=== PATIENT | female | born 2000 | race Hispanic/Latino ===

== ENCOUNTER 2023-06-25 10:17 | Inpatient (IN) | payer OTHER ==
[~2023-06-25 10:17] MED LIST: Bupivacaine 0.25% HCL 30 ML VIAL ONE
[2023-06-25] MEDS ORDERED: fentaNYL 50 mcg/mL 1 mL Vial SLOW IVP PRN (11:03)
[2023-06-25] MEDS ORDERED: Ondansetron PF 4 MG/2 ML Vial IVP PRN ×3 (11:03→19:36)
[2023-06-25] MEDS ORDERED: Tranexamic Acid 1,000 MG/10 ML VIAL IVP PRN (11:03)
[2023-06-25] MEDS ORDERED: Promethazine HCl 25 MG/ML VIAL IM PRN ×3 (11:03→19:36)
[2023-06-25] MEDS ORDERED: Lidocaine 1% (PF) 30 ML VIAL SC PRN (11:03)
[2023-06-25] MEDS ORDERED: Carboprost 250 MCG/ML AMP IM PRN (11:03)
[2023-06-25] MEDS ORDERED: Misoprostol 200 MCG TAB PR PRN (11:03)
[2023-06-25] MEDS ORDERED: hydrALAZINE 20 MG/ML VIAL SLOW IVP PRN ×2 (11:03→19:36)
[2023-06-25] MEDS ORDERED: Diphenoxylate HCl/Atropine Tablet PO PRN (11:03)
[2023-06-25] MEDS ORDERED: HYDROcodone/Acetaminophen 5/325 mg Tablet PO PRN ×2 (11:03→19:36)
[2023-06-25] MEDS ORDERED: Acetaminophen 500 MG TAB PO PRN (11:03)
[2023-06-25] MEDS ORDERED: Ibuprofen 800 MG TAB PO PRN (11:03)
[2023-06-25] MEDS ORDERED: Methylergonovine 0.2 MG/ML VIAL IM PRN (11:03)
[2023-06-25] MEDS ORDERED: Lactated Ringer's 1,000 ML IV SCH (11:15)
[2023-06-25] MEDS ORDERED: NS w/ Oxytocin 30 units 500 ML IV SCH ×3 (11:15)
[2023-06-25 11:45] LABS: Hematocrit 30.8 % (34.9-44.5); Hemoglobin 9.8 g/dL (12.0-15.5); Mean Corpuscular HGB CONC 31.8 g/dL (32.0-36.0); Mean Corpuscular Hemoglobin 25.2 pg (27.0-33.0); Mean Corpuscular Volume 79.2 fl (81.6-98.3); Mean Platelet Volume 10.1 fl (7.4-10.4); Platelet Count 225 10x3/uL (150-450); RBC Distribution Width 14.1 % (11.5-14.5); Red Blood Cell (RBC) Count 3.89 10x6/uL (3.90-5.03); White Blood Cell (WBC) Count 6.8 10x3/uL (3.5-10.5)
[2023-06-25 12:23] LABS: HBSAg Index 0.19 S/CO (0-0.99); Hep B Surf Ag - L&D Non-Reactive S/CO (NonReactive); Syphilis Antibody Nonreactive (Nonreactive); Syphilis Antibody Index 0.03 S/CO (<1.00 Non-Reactive)
[2023-06-25] MEDS ORDERED: fentaNYL/Ropivacaine Epidural 100 ML ONE (13:30)
[2023-06-25] MEDS ORDERED: diphenhydrAMINE 50 MG/ML VIAL IVP PRN (14:20)
[2023-06-25] MEDS ORDERED: ePHEDrine Sulfate 50 MG/10 ML VIAL SLOW IVP PRN (14:20)
[2023-06-25] MEDS ORDERED: Acetaminophen 325 MG TAB PO PRN (14:20)
[2023-06-25] MEDS ORDERED: Moisturizing Cream (Eucerin) 113 GM JAR TOP PRN (14:20)
[2023-06-25] MEDS ORDERED: Lactated Ringer's 500 ML IV PRN (14:20)
[2023-06-25] MEDS ORDERED: Naloxone HCl 0.4 mg/ml Vial IVP PRN ×2 (14:20)
[2023-06-25] MEDS ORDERED: Communication Order-Pharmacy FS SCH (14:30)
[2023-06-25] MEDS ORDERED: fentaNYL 2 mcg/Ropivacaine 0.2% Epidural 100 ML CADD EPIDURAL SCH (14:30)
[2023-06-25 17:52] VITALS: BMI 44.4
[2023-06-25] MEDS ORDERED: Lanolin Ointment 7 GM TUBE TOP PRN (19:36)
[2023-06-25] MEDS ORDERED: Bisacodyl 10 MG SUPP PR PRN (19:36)
[2023-06-25] MEDS ORDERED: diphenhydrAMINE 25 MG CAP PO PRN (19:36)
[2023-06-25] MEDS ORDERED: Boostrix 0.5 ML (Tdap) VIAL (>/=7 yrs of age) IM ONE (19:36)
[2023-06-25] MEDS ORDERED: Milk Of Magnesia 30 ML UDCUP PO PRN (19:36)
[2023-06-25] MEDS: Docusate 100 MG CAP PO SCH (21:32)
[2023-06-25] MEDS: Ibuprofen 800 MG TAB PO SCH (23:23)
[2023-06-26] MEDS: Ibuprofen 800 MG TAB PO SCH ×2 (05:46→13:54)
[2023-06-26] MEDS ORDERED: Ferrous Sulfate 325 MG TAB PO SCH (08:00)
[2023-06-26] MEDS ORDERED: Prenatal Vitamin 1 TAB PO SCH (09:00)
[2023-06-26] MEDS: Docusate 100 MG CAP PO SCH (09:11)
[2023-06-26] MEDS: HYDROcodone/Acetaminophen 5/325 mg Tablet PO PRN ×2 (09:11→18:10)
[2023-06-26 16:43] VITALS: BP 106/55; TEMP 98.3
== END 2023-06-26 19:20 | disposition home or self-care (01) | DRG 807 ==
LOC: CSHLD 10:17 → CSHPP 20:24
PROVIDERS: ADMIT Family Medicine; ATTEND Family Medicine
PROC: 10E0XZZ Delivery of Products of Conception, External Approach (ICD-10-PCS; principal; 2023-06-25)
PROC: 10907ZC Drainage of Amniotic Fluid, Therapeutic from Products of Conception, Via Natural or Artificial Opening (ICD-10-PCS; 2023-06-25)
DX: O99.214 Obesity complicating childbirth (principal); Z37.0 Single live birth; Z79.899 Other long term (current) drug therapy; Z3A.38 38 weeks gestation of pregnancy
CPT/HCPCS: 85027; 86780; 86850; 86900; 86901; 87340; S0020